=== PATIENT | female | born 1980 | race Two or more races ===

== ENCOUNTER 2018-05-29 14:02 | Emergency (ER) | payer OTHER ==
[2018-05-29 14:17] VITALS: BP 110/68
[2018-05-29] MEDS ORDERED: predniSONE 20 MG TABLET PO STA (14:46)
--- NOTE | 2018-05-29 14:48 | ED Physician Documentation ---
PD HPI SKIN - Stated complaint Stated Complaint: EAR PX - Chief complaint Chief Complaint: Wound - History obtained from History obtained from: Patient - History of Present Illness Timing - onset: Other (6 days ago she used a new shampoo and then the next day she developed itchy redness and swelling to her neck and ears bilaterally. She tried Benadryl without relief. No throat swelling or shortness of breath.) Review of Systems Constitutional: reports: Reviewed and negative Ears: reports: Reviewed and negative Cardiac: reports: Reviewed and negative Respiratory: reports: Reviewed and negative PD PAST MEDICAL HISTORY - Past Medical History Past Medical History: No Cardiovascular: None Respiratory: None Neuro: None Endocrine/Autoimmune: None GI: None [employer]: None : None HEENT: None Psych: None Musculoskeletal: None Derm: None - Past Surgical History Past Surgical History: No - Present Medications Home Medications: Ambulatory Orders Medication Instructions Recorded Confirmed hydrOXYzine pamoate [Hydroxyzine 1 - 2 tab PO Q6H PRN #20 capsule 05/29/18 Pamoate] predniSONE [Deltasone] 60 mg PO DAILY 5 Days tablet 05/29/18 - Allergies Allergies/Adverse Reactions: Allergies Allergy/AdvReac Type Severity Reaction Status Date / Time Penicillins Allergy Rash Verified 05/29/18 14:17 - Social History Does the pt smoke?: No Smoking Status: Never smoker Does the pt drink ETOH?: No Does the pt have substance abuse?: No - Immunizations Immunizations are current?: No - POLST Patient has POLST: No PD ED PE NORMAL - Vitals Vital signs reviewed: Yes - General General: Alert and oriented X 3, No acute distress - HEENT HEENT: Pharynx benign - Neck Neck: Supple, no meningeal sign, No bony TTP - Respiratory Respiratory: No respiratory distress, Clear bilaterally - Derm Derm: Other (She has erythema that is diffuse especially over the upper ears and posterior neck with some hives in the posterior neck and mild swelling of the pinna of both ears.) - Neuro Neuro: Alert and oriented X 3, Normal speech Results - Vitals Vitals: Vital Signs - 24 hr 05/29/18 14:15 Temperature 36.2 C L Heart Rate 79 Respiratory 16 Rate Blood Pressure 110/68 O2 Saturation 99 Oxygen O2 Source Room air Departure - Departure Disposition: 01 Home, Self Care Clinical Impression: Allergic reaction Qualifiers: Encounter type: initial encounter Qualified Code(s): T78.40XA - Allergy, unspecified, initial encounter Condition: Good Record reviewed to determine appropriate education?: Yes Instructions: ED Allergic Reaction General Other Prescriptions: hydrOXYzine pamoate [Hydroxyzine Pamoate] 1 - 2 tab PO Q6H PRN #20 capsule PRN Reason: Itching predniSONE [Deltasone] 60 mg PO DAILY 5 Days tablet Comments: Call your doctor to arrange a follow-up appointment, make the next available appointment. In the interim, return anytime if worse or if new symptoms develop.
== END 2018-05-29 14:55 | disposition home or self-care (01) ==
LOC: ED 14:02
DX: T78.49XA Other allergy, initial encounter (principal); X58.XXXA Exposure to other specified factors, initial encounter
CPT/HCPCS: 99283; J7512